=== PATIENT | male | born 2005 | race Caucasian/White ===

== ENCOUNTER 2024-11-11 14:43 | Emergency (ER) | payer OTHER ==
[~2024-11-11] VITALS: Ht 175.3 cm; Wt 100.0 kg
[2024-11-11 14:52] VITALS: O2SAT 98
[2024-11-11] MEDS: IBUPROFEN 600MG TABLET PO ONE (17:08)
[2024-11-11] MEDS: BACITRACIN ZINC OINT UDPKT TOP ONE (17:17)
[2024-11-11] MEDS: LIDOCAINE HCL/PF 1% 10 MG/ML 5ML VIAL INFIL ONE (17:17)
[2024-11-11] MEDS: TETANUS, DIPHTHERIA, PERTUSSIS VAC/PF 0.5ML (>10YR OLD) IM ONE (17:44)
[2024-11-11] MEDS ORDERED: BO1 TP (17:54)
[2024-11-11] MEDS ORDERED: IBUP-2029 MT (18:04)
[2024-11-11 18:09] VITALS: BP 134/76; PULSE 88; RESP 18; TEMP 37.1; O2SAT 98
== END 2024-11-11 18:10 | disposition home or self-care (01) ==
LOC: ER 14:53
DX: S61.211A Laceration without foreign body of left index finger without damage to nail, initial encounter (principal); J45.909 Unspecified asthma, uncomplicated; W45.8XXA Other foreign body or object entering through skin, initial encounter; Y93.89 Activity, other specified; Y92.098 Other place in other non-institutional residence as the place of occurrence of the external cause; Y99.8 Other external cause status
CPT/HCPCS: 99283; 90715; 12002; 90471; J2003